=== PATIENT | female | born 1975 | race Caucasian/White ===

== ENCOUNTER 2016-05-28 14:12 | Observation (INO) | payer BC ==
[~2016-05-28] VITALS: Ht 157.5 cm; Wt 60.5 kg
[2016-05-28] MEDS ORDERED: VITACAP26 PO (14:30)
[2016-05-28] MEDS ORDERED: FERR28TA2 PO (14:30)
[2016-05-28] MEDS ORDERED: ONDANSETRON INJ 2 MG/ML 2 ML VIAL IV STA (14:46)
[2016-05-28] MEDS ORDERED: MoRPHine SULFATE 4 MG/ML 1 ML CARP\\VIAL IV ONE (15:00)
[2016-05-28] MEDS ORDERED: OPTIRAY 320 IV PRN (15:00)
[2016-05-28] MEDS ORDERED: SODIUM CHLORIDE 0.9% 1000ML 1,000 ML IV ONE (15:00)
[2016-05-28 15:17] LABS: BASO % 0.3 %; BASO ABS # 0.02 K/uL (0-0.2); COMPLETE YES; EOS % 2.6 %; HEMATOCRIT 36.1 % (37-47); IG% 0.2 %; LYMPH % 33.2 %; LYMPH ABS # 2.19 K/uL (1.2-3.4); MEAN CELL VOLUME 88.7 fL (80-100); MEAN CORPUSCULAR HEMOGLOBIN 30.7 pg (25-34); MEAN CORPUSCULAR HGB CONC 34.6 g/dl (32-36); MEAN PLATELET VOLUME 11.4 fL (7.4-10.4); NEUT % 55.7 %; PLATELET COUNT 260 K/uL (130-400); RED BLOOD COUNT 4.07 M/uL (4.2-5.4); WHITE BLOOD COUNT 6.59 K/uL (4.8-10.8)
[2016-05-28 15:30] LABS: URINE APPEARANCE CLEAR (CLEAR); URINE BILIRUBIN NEG (NEG); URINE COLOR YELLOW; URINE EPITHELIAL CELL AUTO 0-5 /lpf (0-5); URINE NITRITE NEG (NEG); URINE SPECIFIC GRAVITY 1.013 (1.000-1.030); UROBILINOGEN NEG (NEG); ZZUR CULT IF INDIC CLEAN CATCH NO
[2016-05-28 15:39] LABS: BUN/CREATININE RATIO 15.9 (10-20); CALCIUM 9.1 mg/dl (8.5-10.1); CREATININE 0.8 mg/dl (0.60-1.20); POTASSIUM 4.1 mmol/L (3.5-5.1)
[2016-05-28 15:41] LABS: ALB/GLOB RATIO 1.4 (0.9-2)
[2016-05-28 16:05] LABS: MANUAL MICROSCOPIC REQUIRED? NO; REVIEW REQ? NO
--- NOTE | 2016-05-28 16:51 | DIAGNOSTIC IMAGING REPORT ---
EXAMINATION: PELVIC ULTRASOUND CLINICAL HISTORY: RLQ abd pain COMPARISON STUDY: None FINDINGS: The uterus measured 10.7 x 4.4 x 5.0 cm. The endometrial stripe measured 10 mm. The right ovary measured 39 x 19 x 19 mm. There is an 18 mm right ovarian follicle. The left ovary measured 31 x 19 x 20 mm.. There is no ultrasonographic evidence of ovarian torsion. It should be noted that ovarian torsion can be present with normal Doppler ultrasonographic findings. There was no evidence of pathologic free pelvic fluid. Additional images the right lower quadrant reveal no pathologic masses. Multiple fluid-filled bowel loops were visualized. IMPRESSION: Normal pelvic ultrasound. Electronically signed by: Heron Blanton M.D. 05/28/2016 4:50 PM Dictated Date/Time: 05/28/2016 4:48 PM
--- NOTE | 2016-05-28 17:33 | DIAGNOSTIC IMAGING REPORT ---
ABDOMEN AND PELVIS CT WITH IV AND ORAL CONTRAST CT DOSE: 364.15 mGycm HISTORY: Right lower quadrant abdominal pain. TECHNIQUE: Multiaxial CT images of the abdomen and pelvis were performed following the use of intravenous and oral contrast. COMPARISON STUDY: None. FINDINGS: The appendix is slightly thickened measuring up to 8.7 mm in diameter. There is minimal periappendiceal fat stranding. These findings likely represent early acute appendicitis. No perforation or abscess identified. The gallbladder, pancreas, spleen, and adrenal glands are unremarkable. There are few subcentimeter hypodense lesions within the liver and kidney. These are too small to characterize but statistically represent cysts. Dominant lesion within the left hepatic lobe measures 8 mm and dominant lesion within the left kidney measures 7 mm. No hydronephrosis. Tiny fat-containing umbilical hernia. The bladder, uterus, and ovaries are unremarkable. No evidence for bowel obstruction. The lung bases are clear. No suspicious lytic or blastic osseous lesions. IMPRESSION: Mildly thickened appendix with associated periappendiceal fat stranding. This likely represents an early acute appendicitis. Electronically signed by: Flynn Nicole M.D. 05/28/2016 5:32 PM Dictated Date/Time: 05/28/2016 5:26 PM
--- NOTE | 2016-05-28 19:01 | History and Physical ---
History & Physical Date & Time of Service: May 28, 2016 at 18:49 Chief Complaint: Pain In Stomach, Right Side Primary Care Physician: Alex Arteaga D.O. History of Present Illness Source: patient 40 y/o female came to ER with a complaint of pain in the RLQ. It began as a dull ache. It persisted through the night making sleeping difficult. The severity increased today and became more sharp. It does not radiate. She has not had an appetite today. She has had a queasy abdomen but no true nausea and she has not vomited. She has not had a fever. She has not had a change in her bowel habits and she denies dysuria and hematuria. She has not had melena or hematochezia. She has never had pain like this before. Past Medical/Surgical History PMH: None PSH: Rison teeth Breast augmentation D&C Social History Smoking Status: Never Smoker Smokeless Tobacco Use: No Alcohol Use: socially Allergies Coded Allergies: No Known Allergies (Unverified , 05/28/16) Home Medications Scheduled Ferrous Sulfate (Iron), 1 TAB PO DAILY Vitamins C & E (Vitamin C), 1 TAB PO DAILY Review of Systems Constitutional: No chills, No fever Respiratory: No cough, No sputum Cardiovascular: No chest pain Abdomen: + problem reported (as per HPI) Genitourinary - Female: + problem reported (as per HPI) Endocrine: No fatigue Hematologic / Lymphatic: No abnormal bleeding/bruising Integumentary: No rash Physical Exam Vital Signs Date Time Temp Pulse Resp B/P Pulse Ox O2 Delivery O2 Flow Rate FiO2 05/28/16 18:38 66 20 130/88 98 Room Air 05/28/16 16:57 62 18 119/71 100 Room Air 05/28/16 14:18 37.1 75 18 129/68 97 Room Air General Appearance: WD/WN Head: normocephalic Neck: supple, no adenopathy Respiratory/Chest: chest non-tender, lungs clear Cardiovascular: regular rate, rhythm Abdomen/GI: normal bowel sounds, soft, + tenderness (RLQ) Back: normal inspection, no CVA tenderness Extremities/Musculoskelatal: normal inspection, no calf tenderness Skin: normal color Diagnostics Laboratory Results Results Past 24 Hours Test 05/28/16 14:15 05/28/16 15:02 Range/Units Urine Color YELLOW Urine Appearance CLEAR CLEAR Urine pH 6.0 4.5-7.5 Urine Specific [place] 1.013 1.000-1.030 Urine Protein NEG NEG Urine Glucose (UA) NEG NEG Urine Ketones NEG NEG Urine Occult Blood 3+ NEG Urine Nitrite NEG NEG Urine Bilirubin NEG NEG Urine Urobilinogen NEG NEG Urine Leukocyte Esterase NEG NEG Urine WBC (Auto) 1-5 0-5 /hpf Urine RBC (Auto) >30 0-4 /hpf Urine Hyaline Casts (Auto) 0 0-5 /lpf Urine Epithelial Cells (Auto) 0-5 0-5 /lpf Urine Bacteria (Auto) NEG NEG Urine Test NEG NEG White Blood Count 6.59 4.8-10.8 K/uL Red Blood Count 4.07 4.2-5.4 M/uL Hemoglobin 12.5 12.0-16.0 g/dL Hematocrit 36.1 37-47 % Mean Corpuscular Volume 88.7 80-100 fL Mean Corpuscular Hemoglobin 30.7 25-34 pg Mean Corpuscular Hemoglobin Concent 34.6 32-36 g/dl Platelet Count 260 130-400 K/uL Mean Platelet Volume 11.4 7.4-10.4 fL Neutrophils (%) (Auto) 55.7 % Lymphocytes (%) (Auto) 33.2 % Monocytes (%) (Auto) 8.0 % Eosinophils (%) (Auto) 2.6 % Basophils (%) (Auto) 0.3 % Neutrophils # (Auto) 3.67 1.4-6.5 K/uL Lymphocytes # (Auto) 2.19 1.2-3.4 K/uL Monocytes # (Auto) 0.53 0.11-0.59 K/uL Eosinophils # (Auto) 0.17 0-0.5 K/uL Basophils # (Auto) 0.02 0-0.2 K/uL RDW Standard Deviation 39.6 36.4-46.3 fL RDW Coefficient of Variation 12.4 11.5-14.5 % Immature Granulocyte % (Auto) 0.2 % Immature Granulocyte # (Auto) 0.01 0.00-0.02 K/uL Sodium Level 140 136-145 mmol/L Potassium Level 4.1 3.5-5.1 mmol/L Chloride Level 105 98-107 mmol/L Carbon Dioxide Level 28 21-32 mmol/L Anion Gap 7.0 3-11 mmol/L Blood Urea Nitrogen 13 7-18 mg/dl Creatinine 0.80 0.60-1.20 mg/dl Est Creatinine Clear Calc Drug Dose 80.1 ml/min Estimated GFR () 106.9 Estimated GFR (Non- 92.2 BUN/Creatinine Ratio 15.9 10-20 Random Glucose 87 70-99 mg/dl Calcium Level 9.1 8.5-10.1 mg/dl Total Bilirubin 0.7 0.2-1 mg/dl Aspartate Amino Transf (AST/SGOT) 11 15-37 U/L Alanine Aminotransferase (ALT/SGPT) 17 12-78 U/L Alkaline Phosphatase 39 45-117 U/L Total Protein 7.3 6.4-8.2 gm/dl Albumin 4.2 3.4-5.0 gm/dl Globulin 3.1 2.5-4.0 gm/dl Albumin/Globulin Ratio 1.4 0.9-2 Lipase 284 73-393 U/L Diagnostic Radiology I reviewed the images and the reports. EXAMINATION: PELVIC ULTRASOUND CLINICAL HISTORY: RLQ abd pain COMPARISON STUDY: None FINDINGS: The uterus measured 10.7 x 4.4 x 5.0 cm. The endometrial stripe measured 10 mm. The right ovary measured 39 x 19 x 19 mm. There is an 18 mm right ovarian follicle. The left ovary measured 31 x 19 x 20 mm.. There is no ultrasonographic evidence of ovarian torsion. It should be noted that ovarian torsion can be present with normal Doppler ultrasonographic findings. There was no evidence of pathologic free pelvic fluid. Additional images the right lower quadrant reveal no pathologic masses. Multiple fluid-filled bowel loops were visualized. IMPRESSION: Normal pelvic ultrasound. [~ rep ct add3]] ABDOMEN AND PELVIS CT WITH IV AND ORAL CONTRAST CT DOSE: 364.15 mGycm HISTORY: Right lower quadrant abdominal pain. TECHNIQUE: Multiaxial CT images of the abdomen and pelvis were performed following the use of intravenous and oral contrast. COMPARISON STUDY: None. FINDINGS: The appendix is slightly thickened measuring up to 8.7 mm in diameter. There is minimal periappendiceal fat stranding. These findings likely represent early acute appendicitis. No perforation or abscess identified. The gallbladder, pancreas, spleen, and adrenal glands are unremarkable. There are few subcentimeter hypodense lesions within the liver and kidney. These are too small to characterize but statistically represent cysts. Dominant lesion within the left hepatic lobe measures 8 mm and dominant lesion within the left kidney measures 7 mm. No hydronephrosis. Tiny fat-containing umbilical hernia. The bladder, uterus, and ovaries are unremarkable. No evidence for bowel obstruction. The lung bases are clear. No suspicious lytic or blastic osseous lesions. IMPRESSION: Mildly thickened appendix with associated periappendiceal fat stranding. This likely represents an early acute appendicitis Impression Assessment and Plan This patient's history and physical and CT scan and labs are all consistent with appendicitis. I recommended a laparoscopic appendectomy. I explained the possible need to convert to and open procedure and the possible complications. She has agreed to the procedure and has signed a a consent form.
[2016-05-28] MEDS ORDERED: CEFAZOLIN SOD 1 GM VIAL ONE (19:15)
[2016-05-28] MEDS ORDERED: BUPIVACAINE 0.5 % 5 MG/1 ML MPF 30ML VIAL ONE (19:16)
[2016-05-28] MEDS ORDERED: HEPARIN SOD (PORCINE) 1000 UNIT/ML 10 ML VIAL ONE (19:16)
[2016-05-28] MEDS ORDERED: PROPOFOL IV EMULSION 10 MG/ML 20 ML VIAL IV ONE (19:32)
[2016-05-28] MEDS ORDERED: SUCCINYLCHOLINE CHLORIDE 20 MG/ML 10 ML VIAL IV ONE (19:32)
[2016-05-28] MEDS ORDERED: LIDOCAINE HCL 2% 2 ML VIAL (20MG/ML) ONE (19:32)
[2016-05-28] MEDS ORDERED: FENTANYL CITRATE INJ 50 MCG/1 ML 2 ML VIAL ONE ×2 (19:32→21:22)
[2016-05-28] MEDS ORDERED: ROCURONIUM BROMID 50MG/5ML SYR ONE (19:32)
[2016-05-28] MEDS ORDERED: ONDANSETRON INJ 2 MG/ML 2 ML VIAL ONE (20:24)
[2016-05-28] MEDS ORDERED: KETOROLAC TROMETHAMINE 30 MG/ML VIAL ONE (20:24)
[2016-05-28] MEDS ORDERED: DEXAMETHASONE SOD INJ 4 MG/ML VIAL ONE (20:24)
[2016-05-28] MEDS ORDERED: PROMETHAZINE HCL INJ 6.25 MG in SODIUM CHLORIDE 0.9% 50ML 50 ML IV PRN (21:15)
[2016-05-28] MEDS ORDERED: ONDANSETRON INJ 2 MG/ML 2 ML VIAL IV PRN ×2 (21:15→21:30)
[2016-05-28] MEDS ORDERED: ATROPINE SULFATE 0.1 MG/ML 5ML SYR IV PRN (21:15)
[2016-05-28] MEDS ORDERED: EpHEDrine SULFATE INJ 50 MG/ML AMP IV PRN (21:15)
--- NOTE | 2016-05-28 21:21 | Anesthesiology Progress Note ---
Anesthesia Post Op Note Date & Time May 28, 2016 at 21:21 Vital Signs Pain Intensity: 0 Vital Signs Past 12 Hours Date Time Temp Pulse Resp B/P Pulse Ox O2 Delivery O2 Flow Rate FiO2 05/28/16 21:15 74 20 133/77 100 Nasal Cannula 2 05/28/16 21:05 77 20 134/80 100 Nasal Cannula 2 05/28/16 20:57 36.2 78 20 129/79 100 Nasal Cannula 2 05/28/16 18:38 66 20 130/88 98 Room Air 05/28/16 16:57 62 18 119/71 100 Room Air 05/28/16 14:18 37.1 75 18 129/68 97 Room Air Notes Mental Status: alert / awake / arousable, participated in evaluation Pt Amnestic to Procedure: Yes Nausea / Vomiting: adequately controlled Pain: adequately controlled Airway Patency, RR, SpO2: stable & adequate BP & HR: stable & adequate Hydration State: stable & adequate Anesthetic Complications: no major complications apparent
[2016-05-28] MEDS: FENTANYL CITRATE INJ 50 MCG/1 ML 2 ML VIAL IV PRN ×2 (21:25→21:30)
--- NOTE | 2016-05-28 21:26 | [facility] Post Operative Brief Note ---
Immediate Operative Summary Operative Date May 28, 2016. Pre-Operative Diagnosis Appendicitis Post-Operative Diagnosis Appendicitis Procedure(s) Performed Laparoscopic appendectomy Surgeon Dr. Jignesh Wiley Machine Cementer Surgeon(s) none Estimated Blood Loss 5mL Findings See dictation Specimens A: Appendix Drains None Anesthesia General Complication(s) None Disposition Recovery Room / PACU
[2016-05-28] MEDS ORDERED: MoRPHine SULFATE 4 MG/ML 1 ML CARP\\VIAL IV PRN (21:30)
[2016-05-28 22:00] VITALS: BP 131/82; PULSE 80; TEMP 36.9; O2SAT 94; O2SAT 95
[2016-05-28] MEDS ORDERED: IV FLUIDS COMPLETED PRN (22:00)
[2016-05-28 22:15] VITALS: BP 131/82; PULSE 74; TEMP 36.9; O2SAT 95; O2SAT 97; Ht 157.5 cm; Wt 60.5 kg
--- NOTE | 2016-05-28 22:21 | EMERGENCY ROOM VISIT NOTE ---
History First contact with patient: 14:27 Chief Complaint: ABDOMINAL PAIN Stated Complaint: PAIN IN STOMACH, RIGHT SIDE Nursing Triage Summary: Pt presents with right sided abd pain that began last evening, worse when she went to bed. "It hurts to press in certain areas on my right side." Denies n/v/d. History of Present Illness The patient is a 40 year old female who presents to the Emergency Room with complaints of right lower quadrant abdominal pain that began last evening. The patient states that she was chewing practice when she began having some discomfort of her abdomen. At first her pain was slightly intermittent, but it has worsened throughout the night. The patient has had some very mild nausea but no vomiting and no diarrhea. The patient states her discomfort worsens when she presses in the right side lower aspect of her abdomen. She has not had fever or chills. No vaginal drainage or discharge. She denies chance of . She does not report a past abdominal surgical history. Her last meal was around 8 AM when she had a small amount of cereal and sips of water. The patient describes herself as otherwise usually healthy and rates her discomfort a 5/10 at rest and 8/10 with palpation. She has not taken anything [id number] for her discomfort. Review of Systems More than 10 systems were reviewed and otherwise negative with the exception of history of present illness. Past Medical/Surgical History Medical Problems: (1) Appendicitis Family History No pertinent family history Social History Smoking Status: Never Smoker Smokeless Tobacco Use: No Marital Status: Housing Status: lives with family Current/Historical Medications Scheduled Ferrous Sulfate (Iron), 1 TAB PO DAILY Vitamins C & E (Vitamin C), 1 TAB PO DAILY Allergies Coded Allergies: No Known Allergies (Unverified , 05/28/16) Physical Exam Vital Signs Date Time Temp Pulse Resp B/P Pulse Ox O2 Delivery O2 Flow Rate FiO2 05/28/16 21:35 75 20 129/77 100 Nasal Cannula 2 05/28/16 21:25 72 20 120/86 100 Nasal Cannula 2 05/28/16 21:15 74 20 133/77 100 Nasal Cannula 2 05/28/16 21:05 77 20 134/80 100 Nasal Cannula 2 05/28/16 20:57 36.2 78 20 129/79 100 Nasal Cannula 2 05/28/16 18:38 66 20 130/88 98 Room Air 05/28/16 16:57 62 18 119/71 100 Room Air 05/28/16 14:18 37.1 75 18 129/68 97 Room Air Pain Rating (0-10): 0 Physical Exam VITALS: Vitals are noted on the nurse's note and reviewed by myself. Vital signs stable. GENERAL: Well-developed, well-nourished, white female, who is in no acute distress and resting comfortably. Patient is cooperative with the examination. HEAD: Normocephalic atraumatic. HEART: Regular rate and rhythm without murmurs gallops or rubs. LUNGS: Clear to auscultation bilaterally without wheezes, rales or rhonchi. No retractions or accessory muscle use. ABDOMEN: Positive normal bowel sounds x 4. Soft with positive right lower quadrant tenderness on palpation. No rebound or guarding. Positive obturator and psoas. No CVA tenderness. MUSCULOSKELETAL: No muscle atrophy, erythema, or edema noted. Full range of motion without joint tenderness in all extremities Medical Decision & Procedures ER Provider Diagnostic Interpretation: EXAMINATION: PELVIC ULTRASOUND CLINICAL HISTORY: RLQ abd pain COMPARISON STUDY: None FINDINGS: The uterus measured 10.7 x 4.4 x 5.0 cm. The endometrial stripe measured 10 mm. The right ovary measured 39 x 19 x 19 mm. There is an 18 mm right ovarian follicle. The left ovary measured 31 x 19 x 20 mm.. There is no ultrasonographic evidence of ovarian torsion. It should be noted that ovarian torsion can be present with normal Doppler ultrasonographic findings. There was no evidence of pathologic free pelvic fluid. Additional images the right lower quadrant reveal no pathologic masses. Multiple fluid-filled bowel loops were visualized. IMPRESSION: Normal pelvic ultrasound. ABDOMEN AND PELVIS CT WITH IV AND ORAL CONTRAST CT DOSE: 364.15 mGycm HISTORY: Right lower quadrant abdominal pain. TECHNIQUE: Multiaxial CT images of the abdomen and pelvis were performed following the use of intravenous and oral contrast. COMPARISON STUDY: None. FINDINGS: The appendix is slightly thickened measuring up to 8.7 mm in diameter. There is minimal periappendiceal fat stranding. These findings likely represent early acute appendicitis. No perforation or abscess identified. The gallbladder, pancreas, spleen, and adrenal glands are unremarkable. There are few subcentimeter hypodense lesions within the liver and kidney. These are too small to characterize but statistically represent cysts. Dominant lesion within the left hepatic lobe measures 8 mm and dominant lesion within the left kidney measures 7 mm. No hydronephrosis. Tiny fat-containing umbilical hernia. The bladder, uterus, and ovaries are unremarkable. No evidence for bowel obstruction. The lung bases are clear. No suspicious lytic or blastic osseous lesions. IMPRESSION: Mildly thickened appendix with associated periappendiceal fat stranding. This likely represents an early acute appendicitis. Laboratory Results 05/28/16 15:02 Red Blood Count 4.07, Mean Corpuscular Volume 88.7, Mean Corpuscular Hemoglobin 30.7, Mean Corpuscular Hemoglobin Concent 34.6, Mean Platelet Volume 11.4, Neutrophils (%) (Auto) 55.7, Lymphocytes (%) (Auto) 33.2, Monocytes (%) (Auto) 8.0, Eosinophils (%) (Auto) 2.6, Basophils (%) (Auto) 0.3, Neutrophils # (Auto) 3.67, Lymphocytes # (Auto) 2.19, Monocytes # (Auto) 0.53, Eosinophils # (Auto) 0.17, Basophils # (Auto) 0.02 05/28/16 15:02 Test 05/28/16 14:15 05/28/16 15:02 Urine Color YELLOW Urine Appearance CLEAR (CLEAR) Urine pH 6.0 (4.5-7.5) Urine Specific [place] 1.013 (1.000-1.030) Urine Protein NEG (NEG) Urine Glucose (UA) NEG (NEG) Urine Ketones NEG (NEG) Urine Occult Blood 3+ (NEG) Urine Nitrite NEG (NEG) Urine Bilirubin NEG (NEG) Urine Urobilinogen NEG (NEG) Urine Leukocyte Esterase NEG (NEG) Urine WBC (Auto) 1-5 /hpf (0-5) Urine RBC (Auto) >30 /hpf (0-4) Urine Hyaline Casts (Auto) 0 /lpf (0-5) Urine Epithelial Cells (Auto) 0-5 /lpf (0-5) Urine Bacteria (Auto) NEG (NEG) Urine Test NEG (NEG) White Blood Count 6.59 K/uL (4.8-10.8) Red Blood Count 4.07 M/uL (4.2-5.4) Hemoglobin 12.5 g/dL (12.0-16.0) Hematocrit 36.1 % (37-47) Mean Corpuscular Volume 88.7 fL (80-100) Mean Corpuscular Hemoglobin 30.7 pg (25-34) Mean Corpuscular Hemoglobin Concent 34.6 g/dl (32-36) Platelet Count 260 K/uL (130-400) Mean Platelet Volume 11.4 fL (7.4-10.4) Neutrophils (%) (Auto) 55.7 % Lymphocytes (%) (Auto) 33.2 % Monocytes (%) (Auto) 8.0 % Eosinophils (%) (Auto) 2.6 % Basophils (%) (Auto) 0.3 % Neutrophils # (Auto) 3.67 K/uL (1.4-6.5) Lymphocytes # (Auto) 2.19 K/uL (1.2-3.4) Monocytes # (Auto) 0.53 K/uL (0.11-0.59) Eosinophils # (Auto) 0.17 K/uL (0-0.5) Basophils # (Auto) 0.02 K/uL (0-0.2) RDW Standard Deviation 39.6 fL (36.4-46.3) RDW Coefficient of Variation 12.4 % (11.5-14.5) Immature Granulocyte % (Auto) 0.2 % Immature Granulocyte # (Auto) 0.01 K/uL (0.00-0.02) Anion Gap 7.0 mmol/L (3-11) Est Creatinine Clear Calc Drug Dose 80.1 ml/min Estimated GFR () 106.9 Estimated GFR (Non- 92.2 BUN/Creatinine Ratio 15.9 (10-20) Calcium Level 9.1 mg/dl (8.5-10.1) Total Bilirubin 0.7 mg/dl (0.2-1) Aspartate Amino Transf (AST/SGOT) 11 U/L (15-37) Alanine Aminotransferase (ALT/SGPT) 17 U/L (12-78) Alkaline Phosphatase 39 U/L (45-117) Total Protein 7.3 gm/dl (6.4-8.2) Albumin 4.2 gm/dl (3.4-5.0) Globulin 3.1 gm/dl (2.5-4.0) Albumin/Globulin Ratio 1.4 (0.9-2) Lipase 284 U/L (73-393) Medications Administered Medications (Trade) Dose Ordered Sig/Joy Route Start Time Stop Time Status Last Admin Dose Admin Sodium Chloride (Nss 1000ml) 1,000 ml @ 999 mls/hr Q1H1M ONCE IV 05/28/16 15:00 05/28/16 16:00 DC 05/28/16 15:02 999 MLS/HR Morphine Sulfate (MoRPHine SULFATE INJ) 4 mg NOW ONCE IV 05/28/16 15:00 05/28/16 15:01 DC 05/28/16 15:02 4 MG Ondansetron HCl (Zofran Inj) 4 mg NOW STAT IV 05/28/16 14:46 05/28/16 14:48 DC 05/28/16 15:02 4 MG Cefazolin Sodium (Ancef Inj) 1,000 mg STK-MED ONCE .ROUTE 05/28/16 19:15 05/28/16 19:18 DC 05/28/16 20:32 1,000 MG Heparin Sodium (Porcine) (Heparin Iv Bolus) 10,000 unit STK-MED ONCE .ROUTE 05/28/16 19:16 05/28/16 19:19 DC 05/28/16 20:33 10,000 UNIT Bupivacaine HCl (Marcaine 0.5% MPF Inj) 30 ml STK-MED ONCE .ROUTE 05/28/16 19:16 05/28/16 19:20 DC 05/28/16 20:47 20 ML Fentanyl Citrate (Fentanyl Inj) 50 mcg Q5M PRN IV 05/28/16 21:15 05/29/16 01:15 05/28/16 21:30 50 MCG ED Course Physical exam and history were performed. Nursing notes and EMR were reviewed. Patient appears to have right lower quadrant abdominal pain for the past one day. On exam she does have tenderness in this region. IV access was established and labs were obtained. The patient was hydrated and medicated as above. Because of her symptoms and exam is CT scan with contrast was performed as well as ultrasound of the right lower quadrant. The patient's blood work is as above and was reviewed. She does not have a significantly elevated white cell count, anemia, bandemia, or gross electrolyte imbalance. Lipase and transaminases are nondiagnostic. Patient's ultrasound returned showing no significant acute findings. Her CT scan does show acute appendicitis. Clinically this does correlate with the patient's symptoms. I discussed case with the on-call surgeon, Dr. Wiley, who agreed to evaluate the patient here in the ER. Please see Dr. Wiley's dictation for further patient course, plan, and disposition. The chart was completed utilizing [employer] Speech Voice Recognition Software. Grammatical errors, random word insertions, pronoun errors, and incomplete sentences are an occasional consequence of this system due to software limitations, ambient noise, and hardware issues. Any formal questions or concerns about the content, text, or information contained within the body of this dictation should be directly addressed to the provider for clarification. . Medical Decision Differential diagnosis: Etiologies such as appendicitis, diverticulitis, PUD, biliary pathology, UTI, pancreatitis, obstruction, mesenteric ischemia, aortic pathology, infections, inflammatory bowel disease, renal colic, as well as others were entertained. Impression Primary Impression: Acute appendicitis Departure Information Referrals Alex Arteaga D.O. (PCP) Patient Instructions My [facility]
[2016-05-28 22:30] VITALS: BP 130/78; PULSE 77; O2SAT 95
[2016-05-28] MEDS: D5W AND 1/2NSS + 20MEQ KCL 1,000 ML IV SCH (22:47)
--- NOTE | 2016-05-28 22:53 | OPERATIVE REPORT ---
DATE OF OPERATION: 05/28/2016 PREOPERATIVE DIAGNOSIS: Acute appendicitis. POSTOPERATIVE DIAGNOSIS: Same. PROCEDURE: Laparoscopic appendectomy. SURGEON: Dr. Wiley. FINDINGS: The distal 4/5th of the appendix was dilated, hyperemic and firm. The proximal 1/5th was normal. The appendix at the base, right at the junction where the cecum was normal and the cecum itself was normal. The visible bowel appeared normal. There was an ovarian cyst on the right. There was no evidence of rupture of the cyst or rupture of the appendix. There was no abscess. TECHNIQUE: The patient was given a general anesthetic and the area was prepped and draped in the usual sterile fashion. Transverse incision was made below the umbilicus, carried down through the subcutaneous tissue to the fascia which was grasped with 2 Tanner clamps and incised between. The peritoneum was identified, incised, and the introducer was placed bluntly. The abdomen was then insufflated to a pressure of 15 mmHg with carbon dioxide. A lower midline introducer was placed under direct vision through small skin incision. The traction was placed medially on the cecum and the appendix was easily seen. The left lower quadrant introducer was placed under direct vision. Anterior traction was placed on the appendix. There were some peritoneal attachments of the base of the appendix to the lateral side wall which were taken down using blunt cautery dissection where appropriate. That was performed until it was completely freed. A plane was then able to be easily established between the base of the appendix and the mesoappendix. The mesoappendix was divided using an Endo-AYANNA stapler. That allowed me to confirm that I was at the base of the appendix which was then amputated off the cecum using the Endo-AYANNA. The appendix was placed into an Endobag and brought out through the left lower quadrant introducer site. The staple lines were inspected and there was minimal amount of oozing from the staple line at the base of the appendix which was controlled with minimal cautery. The staple line had no bleeding. The right lower quadrant was irrigated and irrigation removed. The irrigation gone into the pelvis was removed. Any irrigation that had gone into the right upper quadrant was removed. The uterus and ovaries were then inspected. The gas was allowed to escape and was removed using suction and the introducers were removed. The fascia of the umbilical and left lower quadrant introducer sites was closed with interrupted 0 Vicryl and the skin of all the incisions was closed with 4-0 Monocryl in either an interrupted or running subcuticular fashion. The skin was anesthetized with 0.5% Marcaine. The skin was cleansed, dried, benzoin placed, Steri-Strips applied. Estimated blood loss was 5 mL. Sponge, needle and instrument counts were correct prior to closure. The patient tolerated the surgical procedure without complication and was transferred to recovery. I attest to the content of the Intraoperative Record and any orders documented therein. Any exceptio ns are noted below.
[2016-05-28 23:05] VITALS: BP 124/79; PULSE 77; TEMP 37; O2SAT 95
[2016-05-29] VITALS (8 sets, daily range): BP systolic 86–121; BP diastolic 55–85; PULSE 60–71; TEMP 36.7–37; O2SAT 93–100
[2016-05-29] MEDS: OXYCODONE/ACETAMINOPHEN 5-325 TAB PO PRN ×2 (08:47→13:10)
[2016-05-29] MEDS: D5W AND 1/2NSS + 20MEQ KCL 1,000 ML IV SCH (08:48)
--- NOTE | 2016-05-29 11:05 | Surgery Progress Note ---
Surgery Progress Note Date of Service May 29, 2016. Subjective Post OP Day: 1 + diet (tolerated regular diet), + feeling well, + flatus, + pain controlled, No nausea, No vomiting Objective Vital Signs: Date Time Temp Pulse Resp B/P Pulse Ox O2 Delivery O2 Flow Rate FiO2 05/29/16 10:32 97 Room Air 05/29/16 09:16 Room Air 05/29/16 08:01 36.7 62 13 121/85 97 Room Air 05/29/16 07:25 Room Air 05/29/16 04:06 36.8 60 16 97/60 96 Room Air 05/29/16 01:31 71 101/63 05/29/16 01:01 37.0 67 18 86/55 96 Room Air 05/29/16 00:03 36.9 70 18 105/69 93 Room Air 05/28/16 23:35 Room Air 05/28/16 23:05 37.0 77 16 124/79 95 Room Air 05/28/16 22:30 77 16 130/78 95 Room Air 05/28/16 22:15 36.9 74 16 131/82 97 Room Air 05/28/16 22:15 95 Room Air 05/28/16 22:00 36.9 80 18 131/82 94 Room Air 05/28/16 22:00 95 Room Air 05/28/16 21:35 75 20 129/77 100 Nasal Cannula 2 05/28/16 21:25 72 20 120/86 100 Nasal Cannula 2 05/28/16 21:15 74 20 133/77 100 Nasal Cannula 2 05/28/16 21:05 77 20 134/80 100 Nasal Cannula 2 05/28/16 20:57 36.2 78 20 129/79 100 Nasal Cannula 2 05/28/16 18:38 66 20 130/88 98 Room Air 05/28/16 16:57 62 18 119/71 100 Room Air 05/28/16 14:18 37.1 75 18 129/68 97 Room Air Abdomen: normal bowel sounds, non distended, soft, + tenderness (incisional only) Laboratory Results: Results Past 24 Hours Test 05/28/16 14:15 05/28/16 15:02 Range/Units Urine Color YELLOW Urine Appearance CLEAR CLEAR Urine pH 6.0 4.5-7.5 Urine Specific [place] 1.013 1.000-1.030 Urine Protein NEG NEG Urine Glucose (UA) NEG NEG Urine Ketones NEG NEG Urine Occult Blood 3+ NEG Urine Nitrite NEG NEG Urine Bilirubin NEG NEG Urine Urobilinogen NEG NEG Urine Leukocyte Esterase NEG NEG Urine WBC (Auto) 1-5 0-5 /hpf Urine RBC (Auto) >30 0-4 /hpf Urine Hyaline Casts (Auto) 0 0-5 /lpf Urine Epithelial Cells (Auto) 0-5 0-5 /lpf Urine Bacteria (Auto) NEG NEG Urine Test NEG NEG White Blood Count 6.59 4.8-10.8 K/uL Red Blood Count 4.07 4.2-5.4 M/uL Hemoglobin 12.5 12.0-16.0 g/dL Hematocrit 36.1 37-47 % Mean Corpuscular Volume 88.7 80-100 fL Mean Corpuscular Hemoglobin 30.7 25-34 pg Mean Corpuscular Hemoglobin Concent 34.6 32-36 g/dl Platelet Count 260 130-400 K/uL Mean Platelet Volume 11.4 7.4-10.4 fL Neutrophils (%) (Auto) 55.7 % Lymphocytes (%) (Auto) 33.2 % Monocytes (%) (Auto) 8.0 % Eosinophils (%) (Auto) 2.6 % Basophils (%) (Auto) 0.3 % Neutrophils # (Auto) 3.67 1.4-6.5 K/uL Lymphocytes # (Auto) 2.19 1.2-3.4 K/uL Monocytes # (Auto) 0.53 0.11-0.59 K/uL Eosinophils # (Auto) 0.17 0-0.5 K/uL Basophils # (Auto) 0.02 0-0.2 K/uL RDW Standard Deviation 39.6 36.4-46.3 fL RDW Coefficient of Variation 12.4 11.5-14.5 % Immature Granulocyte % (Auto) 0.2 % Immature Granulocyte # (Auto) 0.01 0.00-0.02 K/uL Sodium Level 140 136-145 mmol/L Potassium Level 4.1 3.5-5.1 mmol/L Chloride Level 105 98-107 mmol/L Carbon Dioxide Level 28 21-32 mmol/L Anion Gap 7.0 3-11 mmol/L Blood Urea Nitrogen 13 7-18 mg/dl Creatinine 0.80 0.60-1.20 mg/dl Est Creatinine Clear Calc Drug Dose 80.1 ml/min Estimated GFR () 106.9 Estimated GFR (Non- 92.2 BUN/Creatinine Ratio 15.9 10-20 Random Glucose 87 70-99 mg/dl Calcium Level 9.1 8.5-10.1 mg/dl Total Bilirubin 0.7 0.2-1 mg/dl Aspartate Amino Transf (AST/SGOT) 11 15-37 U/L Alanine Aminotransferase (ALT/SGPT) 17 12-78 U/L Alkaline Phosphatase 39 45-117 U/L Total Protein 7.3 6.4-8.2 gm/dl Albumin 4.2 3.4-5.0 gm/dl Globulin 3.1 2.5-4.0 gm/dl Albumin/Globulin Ratio 1.4 0.9-2 Lipase 284 73-393 U/L Assessment & Plan S/P lap appendectomy Doing well Can D/C to home Instructions discussed
--- NOTE | 2016-05-29 11:07 | Discharge Instructions ---
Discharge Instructions Date of Service May 29, 2016. Admission Reason for Admission: Appendicitis Discharge Discharge Diagnosis / Problem: Same Discharge Goals Goal(s): Decrease discomfort Activity Recommendations Activity Limitations: per Instructions/Follow-up section Lifting Limitations: no more than 10 pounds Shower/Bathe: tomorrow (Shower only) . Instructions / Follow-Up Instructions / Follow-Up Post-Surgical ~ Discharge Instructions Activity Recommendations: - lifting limitation: (10 pounds for 2 weeks), - exercise/sex/sports limit: (nonstrenuous for 2 weeks), - driving or machine use limit: (none for 1 week), - Shower/bathe limit: (may shower beginning tomorrow) Diet: - Resume previous diet SPECIAL CARE INSTRUCTIONS: - May shower in 24 hours. Let water run over area and pat dry. - Leave steri strips on for one week. - Call the surgeon's office with any questions or concerns - - (ex. temperature higher than 101 degrees F, excessive bleeding or pain). MEDICATIONS: - Resume previous medications unless instructed otherwise by your surgeon. - Ibuprofen 600 mg every 6 hours with food - Percocet 1 every 4 hours, as needed for pain FOLLOW UP VISIT: - If not already scheduled, please call the office to schedule a two week follow-up appointment. Office number Current Hospital Diet Patient's current hospital diet: Regular Diet Discharge Diet Recommended Diet: Regular Diet Procedures Procedures Performed: Laparoscopic appendectomy Pending Studies Studies pending at discharge: no Medical Emergencies . Who to Call and When: Medical Emergencies: If at any time you feel your situation is an emergency, please call 911 immediately. . Non-Emergent Contact Non-Emergency issues call your: Primary Care Provider, Surgeon Call Non-Emergent contact if: your pain is worsening, wound has increased redness, wound has increased pain . "Provider Documentation" section prepared by Jignesh Wiley. VTE Core Measure Inpt VTE Proph given/why not?: Treatment not indicated
--- NOTE | 2016-05-29 11:40 | DISCHARGE SUMMARY ---
PRINCIPAL DIAGNOSIS: Acute appendicitis. SECONDARY DIAGNOSES: None. PRINCIPAL PROCEDURE: Laparoscopic appendectomy. SECONDARY PROCEDURE: None. CONSULTATIONS: None. HISTORY AND PHYSICAL: As per H\T\P on chart. No additions or deletions. BRIEFLY: This is a 40-year-old female who presented to the Emergency Room with right lower quadrant pain that had been present since last evening. She had some mild nausea but no vomiting. There was no fever. She had no change in bowel habits, no dysuria or hematuria. PHYSICAL EXAMINATION: Revealed tenderness in the right lower quadrant, but there was no mass. Her temperature was 37.1. LABORATORY AND IMAGING DATA: Her white blood cell count was 6.59. CT scan of the abdomen and pelvis showed an 8.7 mm thickened appendix with minimal periappendiceal fat stranding. She was felt to have acute appendicitis. HOSPITAL COURSE: She was taken to the operating room where a laparoscopic appendectomy was performed without complication. The distal 4/5 of the appendix was hyperemic, firm and dilated. The base of the appendix was normal. Pathology is pending at this time. By the morning of postoperative day #1, she tolerated a regular diet. She was ambulating. She had some mild abdominal discomfort that was controlled with a Percocet. She was discharged to home on postoperative day #1 in stable condition. She was given Percocet for pain. DISCHARGE MEDICATIONS: Included only vitamin C and iron that she was on preoperatively. FOLLOWUP: She is to follow up with me in 2 weeks.
== END 2016-05-29 13:30 | disposition home or self-care (01) ==
LOC: ENRESERVTM → ENRESERVDT → C.EDB 14:14 → C.MSN 21:25
PROVIDERS: ADMIT Surgery; ATTEND Surgery
DX: K35.80 Unspecified acute appendicitis (principal)